=== PATIENT | male | born 1950 | race Caucasian/White ===

== ENCOUNTER → 2017-04-18 | Outpatient (CLI) | payer MEDICARE, OTHER ==
[~2017-04-18] MED LIST: ALBU17AE3 IH; ASP81CT PO; CYCL10TA9 PO; CYCL5TAB11 PO; DOXY-182 PO; HYDR1TAB PO
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
== END ==
LOC: RAD 08:47
PROVIDERS: ATTEND Internal Medicine
DX: S32.029A Unspecified fracture of second lumbar vertebra, initial encounter for closed fracture (principal); S32.039A Unspecified fracture of third lumbar vertebra, initial encounter for closed fracture; M48.05 Spinal stenosis, thoracolumbar region; M47.816 Spondylosis without myelopathy or radiculopathy, lumbar region; Z87.81 Personal history of (healed) traumatic fracture; Z98.890 Other specified postprocedural states
CPT/HCPCS: 72148

== ENCOUNTER → 2017-05-01 | Outpatient (CLI) | payer MEDICARE, OTHER ==
[2017-05-01 15:13] LABS: BASOPHILS % (AUTO) 0 % (0-10); EOSINOPHILS # (AUTO) 0.2 10^3/uL (0.0-0.3); EOSINOPHILS % (AUTO) 3 % (0-10); HEMATOCRIT 47 % (40-54); HEMOGLOBIN 17.1 G/DL (13.3-17.7); LYMPHOCYTES # (AUTO) 2.7 X 10^3 (1.0-4.0); LYMPHOCYTES % (AUTO) 37 % (12-44); MEAN CORPUSCULAR HEMOGLOBIN 31 PG (25-34); MEAN CORPUSCULAR HGB CONC 36 G/DL (32-36); MEAN CORPUSCULAR VOLUME 87 FL (80-99); MEAN PLATELET VOLUME 10.2 FL (7.4-10.4); MONOCYTES # (AUTO) 0.7 X 10^3 (0.0-1.0); MONOCYTES % (AUTO) 10 % (0-12); NEUTROPHILS # (AUTO) 3.5 X 10^3 (1.8-7.8); NEUTROPHILS % (AUTO) 50 % (42-75); PLATELET COUNT 203 10^3/uL (130-400); RED BLOOD COUNT 5.45 10^6/uL (4.35-5.85); RED CELL DISTRIBUTION WIDTH 14.1 % (10.0-14.5); WHITE BLOOD COUNT 7.1 10^3/uL (4.3-11.0)
[2017-05-01 15:28] LABS: ALANINE AMINOTRANSFERASE 42 U/L (0-55); ALBUMIN 4.4 GM/DL (3.2-4.5); ALKALINE PHOSPHATASE 66 U/L (40-136); BILIRUBIN,TOTAL 0.8 MG/DL (0.1-1.0); BUN/CREATININE RATIO 18; CALCIUM 9.5 MG/DL (8.5-10.1); CARBON DIOXIDE 26 MMOL/L (21-32); CHLORIDE 103 MMOL/L (98-107); CREATININE SERUM 0.97 MG/DL (0.60-1.30); GFR ESTIMATED > 60; GLUCOSE 85 MG/DL (70-105); POTASSIUM 4.7 MMOL/L (3.6-5.0); SODIUM 137 MMOL/L (135-145); TOTAL PROTEIN 7.4 GM/DL (6.4-8.2)
[2017-05-01 16:36] LABS: ERYTHROCYTE SEDIMENTATION RATE 1 MM/HR (0-30)
== END ==
LOC: LAB 14:42
PROVIDERS: ATTEND Internal Medicine
DX: S32.020S Wedge compression fracture of second lumbar vertebra, sequela (principal); S32.030S Wedge compression fracture of third lumbar vertebra, sequela
CPT/HCPCS: 36415; 80053; 82232; 82306; 84155; 84165; 84166; 85025; 85652

== ENCOUNTER → 2017-05-08 | Outpatient (CLI) | payer MEDICARE, OTHER ==
--- NOTE | 2017-05-08 19:54 | Diagnostic Imaging Report ---
DEXA scan. INDICATION: Screening for osteoporosis. There are no prior studies available for comparison. The bone mineral density of the hips and spine was measured. The T score for the spine is -1.3. The total T score for the left hip is -1.7 and for the right hip -2.2. All of these values fall within the range of osteopenia. IMPRESSION: There is osteopenia of the spine and hips. Dictated by: Dictated on workstation # [id number]
== END ==
LOC: RAD 08:42
PROVIDERS: ATTEND Internal Medicine
DX: M85.88 Other specified disorders of bone density and structure, other site (principal); M81.0 Age-related osteoporosis without current pathological fracture; S32.020S Wedge compression fracture of second lumbar vertebra, sequela; S32.030S Wedge compression fracture of third lumbar vertebra, sequela
CPT/HCPCS: 77080

== ENCOUNTER → 2017-05-29 | Outpatient (CLI) | payer MEDICARE, OTHER ==
[~2017-05-29] VITALS: Ht 190.5 cm; Wt 108.9 kg
[~2017-05-29] MED LIST changes: +ZOLEDRONATE 5 MG/100 ML (RECLAST) BTL IV ONE
[2017-05-29 14:23] VITALS: BP 129/73
== END ==
LOC: SDC 13:00
PROVIDERS: ATTEND Internal Medicine
DX: M81.0 Age-related osteoporosis without current pathological fracture (principal)
CPT/HCPCS: 96365

== ENCOUNTER → 2017-09-25 | Outpatient (CLI) | payer MEDICARE, OTHER ==
[~2017-09-25] MED LIST changes: -ZOLEDRONATE 5 MG/100 ML (RECLAST) BTL IV ONE
--- NOTE | 2017-09-25 11:36 | Diagnostic Imaging Report ---
PROCEDURE: MRI lumbar spine. TECHNIQUE: Multiplanar, multisequence MRI of the lumbar spine was performed without contrast. INDICATION: Chronic low back pain and previous lumbar spine surgery. Comparison is made to study of 04/18/2017. There has been interval posterior fusion from T11-L1 including the burst fracture of T12 vertebral body. There may be slight retropulsion, however, no significant spinal stenosis is identified. There is mild annular bulging of L1-L2 disc with mild bilateral neural foraminal stenosis. At L2-L3, there is diffuse disc bulging with associated degenerative facet arthropathy resulting in mild trefoil-type spinal stenosis and mild bilateral neural foraminal stenosis, greater on the left. At the L3-L4 level, diffuse disc bulging and small central disc protrusion result in mild bilateral neural foraminal stenosis. At L4-L5, there is diffuse disc bulging and degenerative facet arthropathy causing mild neural foraminal stenosis, greater on the left. Diffuse disc bulging and endplate spurring with degenerative facet arthropathy at L5-S1 causes moderate bilateral neural foraminal stenosis, greater on the right. No marrow edema seen to indicate fracture. IMPRESSION: No significant change in alignment after posterior fusion from T11-L1. Conus medullaris is unremarkable. Disc bulging, endplate spurring and degenerative facet arthropathy results in mild bilateral neural frontal stenosis which is worse on the left from L2-L5 and worse on the right at L5-S1. Dictated by: Dictated on workstation # [id number]
== END ==
LOC: RAD 09:58
PROVIDERS: ATTEND Internal Medicine
DX: M51.27 Other intervertebral disc displacement, lumbosacral region (principal); M46.97 Unspecified inflammatory spondylopathy, lumbosacral region; M99.73 Connective tissue and disc stenosis of intervertebral foramina of lumbar region; M81.0 Age-related osteoporosis without current pathological fracture; Z98.1 Arthrodesis status
CPT/HCPCS: 72148

== ENCOUNTER → 2018-06-26 | Outpatient (CLI) | payer MEDICARE, OTHER ==
--- NOTE | 2018-06-26 13:12 | Diagnostic Imaging Report ---
PROCEDURE: MR imaging cervical spine without contrast. TECHNIQUE: Multiplanar, multisequence MR imaging of the cervical spine was performed without contrast. INDICATION: Neck pain, left shoulder pain when turning the head. No previous for comparison. FINDINGS: ACDF performed plate and screws from C5 through C7 present with at least partial C6 corpectomy and vertical strut placed. The alignment across above and below the fusion was within normal limits. The cervical spinal cord itself had an unremarkable volume morphology and signal intensity. There is no paravertebral mass, hemorrhage or fluid collection. No edema or fluid in the prevertebral or retropharyngeal spaces. The craniocervical relationship to C1-C2 and C2-C3 levels and disc were normal without stenosis. C3-C4: Bulging disc material and endplate osteophytes flatten and effaces the ventral thecal sac. There is severe central canal stenosis with a paucity of CSF within the canal at the disc space level. There is severe left and moderate right neural foraminal stenosis. C4-C5: Osteophyte disc material flattens and effaces the ventral thecal sac with moderate to severe degree of canal stenosis. There is at least moderate magnitudes of bi-foraminal stenosis. C5-C6: There is moderate right and mild left foraminal stenosis with mild central canal narrowing. C6-C7: There is mild bi-foraminal narrowing without substantial canal stenosis. C7-T1: This level appeared unremarkable. No stenosis. IMPRESSION: 1. Postsurgical change to the lower cervical spine at the operative levels. No substantial stenosis. 2. However, above the of fusion severe degrees of canal and foraminal stenoses are present at C3-C4 and C4-C5 as described. Dictated by: Dictated on workstation # [id number]
== END ==
LOC: RAD 09:26
PROVIDERS: ATTEND Internal Medicine
DX: M48.02 Spinal stenosis, cervical region (principal); M50.30 Other cervical disc degeneration, unspecified cervical region; E55.9 Vitamin D deficiency, unspecified; M81.0 Age-related osteoporosis without current pathological fracture; Z98.1 Arthrodesis status
CPT/HCPCS: 72141

== ENCOUNTER → 2018-07-10 | Outpatient (CLI) | payer MEDICARE, OTHER ==
[~2018-07-10] VITALS: Ht 190.5 cm; Wt 108.9 kg
[~2018-07-10] MED LIST changes: +DENOSUMAB 60 MG/1 ML (PROLIA) SQ SCH
[2018-07-10 13:57] VITALS: BP 135/77
== END ==
LOC: SDC 13:10
PROVIDERS: ATTEND Internal Medicine
DX: M81.0 Age-related osteoporosis without current pathological fracture (principal); E55.9 Vitamin D deficiency, unspecified; M50.30 Other cervical disc degeneration, unspecified cervical region; M54.5 Low back pain
CPT/HCPCS: 96372

== ENCOUNTER → 2019-01-11 | Outpatient (CLI) | payer MEDICARE, OTHER ==
[~2019-01-11] VITALS: Ht 185 cm; Wt 100.0 kg
[~2019-01-11] MED LIST changes: +DENOSUMAB 60 MG/1 ML (PROLIA) SQ ONE; -DENOSUMAB 60 MG/1 ML (PROLIA) SQ SCH
[2019-01-11 13:10] VITALS: BP 135/77
== END ==
LOC: SDC 12:57
PROVIDERS: ATTEND Internal Medicine
DX: M50.30 Other cervical disc degeneration, unspecified cervical region (principal); M81.0 Age-related osteoporosis without current pathological fracture; E55.9 Vitamin D deficiency, unspecified
CPT/HCPCS: 96372

== ENCOUNTER 2020-11-21 05:44 | Outpatient (CLI) | payer MEDICARE, OTHER ==
[~2020-11-21] VITALS: Ht 188 cm; Wt 90.9 kg
[~2020-11-21 05:44] MED LIST changes: -DENOSUMAB 60 MG/1 ML (PROLIA) SQ ONE
[2020-11-21] MEDS ORDERED: MELA1TAB20 PO (15:11)
[2020-11-21] MEDS ORDERED: FINA5TAB6 PO (15:11)
[2020-11-21] MEDS ORDERED: ZOLP10TA PO (15:11)
== END 2020-11-21 15:25 ==
LOC: PREOP 05:44
PROVIDERS: ATTEND Specialist
DX: Z01.818 Encounter for other preprocedural examination (principal)

== ENCOUNTER 2020-11-24 09:45 | Day surgery (SDC) | payer MEDICARE, OTHER ==
[~2020-11-24] VITALS: Ht 188 cm; Wt 90.9 kg
[~2020-11-24 09:45] MED LIST changes: +FINA5TAB6 PO; +MELA1TAB20 PO; +ZOLP10TA PO
--- OUTSIDE RECORDS SUMMARY | 2020-11-24 09:49 | XMS REPORT | Clinical Summary ---
Author Author [facility] Organization [facility] Address Unknown Phone Unavailable Care Team Providers Care [employer] Instructor Name Role Phone Jeferson Negron MD Unavailable Sudhir STRICKLAND MD, Sukhdev Woodward PCP [phone] Source Comments Some departments are not documenting in the electronic medical record. If you d o not see the information that you expected, contact Release of Information in [facility] [employer] Information Management department at [phone] for further assistan ce in locating additional records.[facility] Allergies No Known Active Allergies Medications End Date Status Medication Sig Dispensed Refills Start Date Active zolpidem (AMBIEN) 10 mg Take 10 mg by 0 tablet mouth at 0 bedtime daily. Active cyanocobalamin 1,000 mcg Take 1,000 0 tablet mcg by mouth daily. Active aspirin EC 81 mg tablet Take 81 mg by 0 mouth daily. Active melatonin 10 mg tab Take 10 mg by 0 mouth at bedtime daily. Active cholecalciferol (VITAMIN Take 5,000 0 D-3) 1,000 units tablet Units by mouth daily. Active C,E,zinc,copper Take 1 0 13-[id number]-ymm (OCUVITE capsule by ADULT 50 PLUS) 250-5-1 mg mouth daily. cap Active calcium carbonate/vitamin Take 2 0 D-3 (OSCAL-500+D) 1250 tablets by mg/200 unit tablet mouth daily. Calcium Carb 1250mg delivers 500mg elemental Ca Active Potassium Gluconate 595 Take 595 mg 0 mg (99 mg) tab by mouth daily. Active HERBAL DRUGS PO Take by 0 mouth. Super beta Prostate supplement Active acetaminophen (TYLENOL) Take two 180 tablet 0 500 mg tablet tablets by 0 mouth every 8 hours. Max of 4,000 mg of acetaminophen in 24 hours. Active docusate (COLACE) 100 mg Take one 60 capsule 0 1 capsule capsule by 0 mouth twice daily. Active traMADoL (ULTRAM) 50 mg Take one 60 tablet 0 tablet tablet to two 0 tablets by mouth every 6 hours as needed. Active Problems Problem Noted Date Dorsalgia 12/02/2019 Displacement of internal fixation device of vertebrae 12/02/2019 S/P hardware removal 12/02/2019 Encounter for pre-operative cardiovascular clearance 11/15/2019 Surgical History Surgery Date Site/Laterality Comments BACK SURGERY NECK SURGERY KYPHOPLASTY ARTHROPLASTY 02/24/2001 - 02/23/2002 HX ARTHROSCOPIC SURGERY 02/24/2001 - 02/23/2002 HX FUSION PROCEDURE 02/25/2016 - 02/23/2017 HARDWARE REMOVAL 12/01/2019 Spine REMOVAL POSTE RIOR SEGMENTAL HARDWARE AT THORACIC Thoracic/N/A 11 TO LUMBAR 1, exploration of fusion performed by Zach Hutton MD at [facility] Medical devices from this surgery are i n the Implants section. Medical History Medical History Date Comments Vitamin D deficiency Osteopenia Joint pain Since 2000 Generalized headaches Sometimes when the pain is worse. Nerve injury 2000 Degenerative disc disease, cervical 2000 Degenerative disc disease, lumbar 2000 Degenerative disc disease, thoracic 2000 Family History Medical History Relation Name Comments Arthritis Father Devon Ortega Hypertension Father Devon Ortega Stroke Father Devon Ortega Had a stroke Arthritis Mother Colleen Ortega Hypertension Mother Colleen Ortega Relation Name Status Comments Father Devon Ortega Mother Colleen Ortega Social History Date Tobacco Use Types Packs/Day Years Used Quit: 05/20/2019 Former Smoker Cigarettes 0.5 45 Smokeless Tobacco: Never Used Tobacco Cessation: Ready to Quit: Yes; C ounseling Given: Yes Comments Alcohol Use Standard Drinks/Week Very seldom Not Currently 0 (1 standard drink = 0.6 o z pure alcohol) Alcohol Habits Answer Date Recorded How often do you have a drink containing alcohol? No t asked How many drinks containing alcohol do you have on No t asked a typical day when you are drinking? How often do you have six or more drinks on one Not asked occasion? Comment: Very seldom 10/12/2019 Sex Assigned at Date Recorded Male 09/09/2019 8:53 AM CDT Last Filed Vital Signs Reading Time Taken Comments Vital Sign 96/56 12/03/2019 5:11 AM CDT Blood Pressure 54 12/03/2019 5:11 AM CDT Pulse 36.4 C (97.5 F) 12/03/2019 5:11 AM CDT Temperature - - Respiratory Rate 92% 12/03/2019 5:11 AM CDT Oxygen Saturation - - Inhaled Oxygen Concentration 87.3 kg (192 lb 6.4 oz) 12/01/2019 11:25 AM CDT Weight 188 cm (6' 2") 12/01/2019 11:25 AM CDT Height 24.7 12/01/2019 11:25 AM CDT Body Mass Index Plan of Treatment Health Maintenance Due Date Last Done Comments MEDICARE ANNUAL WELLNESS 1950 VISIT DTAP/TDAP VACCINES (1 - 1968 Tdap) HEPATITIS C SCREENING 1968 PHYSICAL (COMPREHENSIVE) 1968 EXAM COLORECTAL CANCER 2000 SCREENING SHINGLES RECOMBINANT 2000 VACCINE (1 of 2) ABDOMINAL AORTIC ANEURYSM 09/14/2015 SCREENING PNEUMONIA (PPSV23) 09/14/2015 VACCINE (1 of 1 - PPSV23) INFLUENZA VACCINE 09/24/2020 Goals Goal Patient Associated Recent Progress Patient-Stat Aut hor Goal Type Problems ed? Resume normal activities Hospital Yes Izzy Zavala, RN Note: Get back to working on the [employer] Implants Device Identifier Shelf Expiration Date Model / Serial / L ot Explanted Type Area Manufactur er / N/A / N/A Set Screws N/A: Spine Explanted: Qty: 6 on 12/01/2019 by Zach Mckeon MD at [facility] Description:Removed and sent for cleaning for return to patient / N/A / N/A Screws N/A: Spine Explanted: Qty: 6 on 12/01/2019 by Zach Mckeon MD at [facility] Description:Removed and cleaned for return to patient / N/A / N/A Cross Connector N/A: Spine Explanted: Qty: 1 on 12/01/2019 by Zach Mckeon MD at [facility] Description:Removed cleaned for return to patient / N/A / N/A Rods N/A: Spine Explanted: Qty: 2 on 12/01/2019 by Zach Mckeon MD at [facility] Description:Removed ,cleaned for return to patient Results Not on filefrom Last 3 Months Insurance Type Payer Benefit Subscriber ID Effective Phone Address Plan / Dates Group Medicare MEDICARE MEDICARE [id number] 2013-P PART A AND resent B AETNA AETNA [id number] 2014- SUPPLEMENT Present 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
[2020-11-24] MEDS ORDERED: LIDOCAINE PF 1% 2 ML VIAL IR PRN (10:00)
[2020-11-24] MEDS ORDERED: MOXIFLOXACIN OPHTH SOLN 5 MG/ML 0.3 ML SYRINGE OP ONE (10:00)
[2020-11-24] MEDS ORDERED: TIMOLOL MALEATE 0.5% 5 ML (TIMOPTIC) BTL OU PRN (10:00)
[2020-11-24] MEDS ORDERED: POVIDONE (BETADINE) OPHTH SOLN 5% 30 ML OP ONE (10:00)
[2020-11-24] MEDS: TETRACAINE 0.5% OPHTH SOLN 4 ML BTL (SINGLE DOSE ONLY) OU PRN ×4 (10:08→10:26)
[2020-11-24] MEDS: PHENYLEPHRINE 10% OPHTH (NEO-SYN) 5 ML BTL OU SCH ×3 (10:16→10:26)
[2020-11-24] MEDS: TROPICAMIDE 1% OPH SOLN (MYDRIACYL) 15 ML BTL OP SCH ×3 (10:16→10:26)
[2020-11-24] MEDS ORDERED: MIDAZOLAM 2 MG/2 ML (VERSED) VIAL ONE (10:19)
[2020-11-24 10:36] VITALS: BP 121/75
--- NOTE | 2020-11-24 10:43 | Ophthalmologist Pre-Op Note ---
Pre-Operative Progress Note H&P Reviewed The H&P was reviewed, patient examined and no changes noted. Date H&P Reviewed: Nov 24, 2020 Time H&P Reviewed: 10:43 Pre-Op Dx Cataract, Right Eye GUTIERREZ RIZZO MD Nov 24, 2020 10:43
--- NOTE | 2020-11-24 11:06 | Ophthalmology Operative Report ---
Cataract removal/placement IOL PREOPERATIVE DIAGNOSIS: Cataract Right Eye POSTOPERATIVE DIAGNOSIS: Cataract Right Eye PROCEDURE: Cataract removal and placement of posterior chamber implant, right eye SURGEON: Radhames Rizzo ANESTHESIA: Topical with sedation COMPLICATIONS: None ESTIMATED BLOOD LOSS: Minimal DESCRIPTION OF PROCEDURE: After proper informed consent was obtained, the patient, a 70 male, was taken to the Operating Room and the right eye was anesthetized with tetracaine. The right eye was then prepped and draped in the usual manner. A wire lid speculum was placed. A paracentesis was made at the left hand position. Preservative free lidocaine was injected into the anterior chamber followed by viscoelastic. A clear corneal incision was made in the temporal position. A capsulorrhexis was preformed and the central nuclear and cortical material were removed. The posterior capsule was polished and Robert 20.5 AU00T0 IOL was placed into the capsular bag. The residual viscoelastic was aspirated and balanced saline solution was injected into the anterior chamber. Moxifloxacin was injected into the anterior chamber. The wound was checked and found to be water tight. The patient tolerated the procedure well without complications. RADHAMES RIZZO MD Nov 24, 2020 11:06
[2020-11-24 11:10] VITALS: BP 111/70
[2020-11-24] MEDS ORDERED: acetaZOLAMIDE ER 500 MG CAP (DIAMOX SEQUELS) PO ONE (11:30)
--- NOTE | 2020-11-24 13:56 | Anesthesia-General Post-Op ---
MAC Patient Condition Mental Status/LOC: Same as Preop Cardiovascular: Satisfactory Nausea/Vomiting: Absent Respiratory: Satisfactory Pain: Controlled Complications: Absent Post Op Complications Complications None Follow Up Care/Instructions Patient Instructions None needed. Anesthesiology Discharge Order Discharge Order Patient is doing well, no complaints, stable vital signs, no apparent adverse anesthesia problems. No complications reported per nursing. ALETHEA VELAZQUEZ CRNA Nov 24, 2020 13:56
== END 2020-11-24 11:14 ==
LOC: SDC 09:45
PROVIDERS: ATTEND Specialist
DX: H25.11 Age-related nuclear cataract, right eye (principal); F17.200 Nicotine dependence, unspecified, uncomplicated; Z79.899 Other long term (current) drug therapy
CPT/HCPCS: 66984; V2632

== ENCOUNTER 2020-12-01 07:00 | Day surgery (SDC) | payer MEDICARE, OTHER ==
[~2020-12-01] VITALS: Ht 188 cm; Wt 90.9 kg
[2020-12-01] MEDS: TETRACAINE 0.5% OPHTH SOLN 4 ML BTL (SINGLE DOSE ONLY) OU PRN ×4 (07:12→07:30)
[2020-12-01 07:15] VITALS: BP 136/80
[2020-12-01] MEDS ORDERED: LIDOCAINE PF 1% 2 ML VIAL IR PRN (07:15)
[2020-12-01] MEDS ORDERED: MOXIFLOXACIN OPHTH SOLN 5 MG/ML 0.3 ML SYRINGE OP ONE (07:15)
[2020-12-01] MEDS ORDERED: TIMOLOL MALEATE 0.5% 5 ML (TIMOPTIC) BTL OU PRN (07:15)
[2020-12-01] MEDS ORDERED: POVIDONE (BETADINE) OPHTH SOLN 5% 30 ML OP ONE (07:15)
[2020-12-01] MEDS: PHENYLEPHRINE 10% OPHTH (NEO-SYN) 5 ML BTL OU SCH ×3 (07:18→07:30)
[2020-12-01] MEDS: TROPICAMIDE 1% OPH SOLN (MYDRIACYL) 15 ML BTL OP SCH ×3 (07:18→07:30)
[2020-12-01] MEDS ORDERED: MIDAZOLAM 2 MG/2 ML (VERSED) VIAL ONE (08:03)
[2020-12-01] MEDS ORDERED: acetaZOLAMIDE ER 500 MG CAP (DIAMOX SEQUELS) PO ONE (08:30)
--- NOTE | 2020-12-01 08:31 | Ophthalmologist Pre-Op Note ---
Pre-Operative Progress Note H&P Reviewed The H&P was reviewed, patient examined and no changes noted. Date H&P Reviewed: Dec 01, 2020 Time H&P Reviewed: 08:26 Pre-Op Dx Cataract, Left Eye GUTIERREZ RIZZO MD Dec 01, 2020 08:31
--- NOTE | 2020-12-01 08:50 | Ophthalmology Operative Report ---
Cataract removal/placement IOL PREOPERATIVE DIAGNOSIS: Cataract Left Eye POSTOPERATIVE DIAGNOSIS: Cataract Left Eye PROCEDURE: Cataract removal and placement of posterior chamber implant, left eye SURGEON: Radhames Rizzo ANESTHESIA: Topical with sedation COMPLICATIONS: None ESTIMATED BLOOD LOSS: Minimal DESCRIPTION OF PROCEDURE: After proper informed consent was obtained, the patient, a 70 male, was taken to the Operating Room and the left eye was anesthetized with tetracaine. The left eye was then prepped and draped in the usual manner. A wire lid speculum was placed. A paracentesis was made at the left hand position. Preservative free lidocaine was injected into the anterior chamber followed by viscoelastic. A clear corneal incision was made in the temporal position. A capsulorrhexis was preformed and the central nuclear and cortical material were removed. The posterior capsule was polished and an Robert 20.5 AU00T0 was placed into the capsular bag. The residual viscoelastic was aspirated and balanced saline solution was injected into the anterior chamber. Moxifloxacin was injected into the anterior chamber. The wound was checked and found to be water tight. The patient tolerated the procedure well without complications. RADHAMES RIZZO MD Dec 01, 2020 08:50
[2020-12-01 08:57] VITALS: BP 116/68
--- NOTE | 2020-12-01 10:10 | Anesthesia-General Post-Op ---
MAC Patient Condition Mental Status/LOC: Same as Preop Cardiovascular: Satisfactory Nausea/Vomiting: Absent Respiratory: Satisfactory Pain: Controlled Complications: Absent Post Op Complications Complications None Follow Up Care/Instructions Patient Instructions None needed. Anesthesiology Discharge Order Discharge Order Patient is doing well, no complaints, stable vital signs, no apparent adverse anesthesia problems. No complications reported per nursing. JESSENIA POON CRNA Dec 01, 2020 10:10
== END 2020-12-01 08:57 | disposition home or self-care (01) ==
LOC: SDC 07:00
PROVIDERS: ATTEND Specialist
DX: H25.12 Age-related nuclear cataract, left eye (principal); F17.200 Nicotine dependence, unspecified, uncomplicated; Z79.899 Other long term (current) drug therapy
CPT/HCPCS: 66984; V2632

== ENCOUNTER → 2022-09-24 | Outpatient (CLI) | payer MEDICARE, OTHER ==
[~2022-09-24] MED LIST changes: -MELA1TAB20 PO; +MELA1TAB72 PO
--- NOTE | 2022-09-24 11:01 | Diagnostic Imaging Report ---
INDICATION: Personal history of osteopenia, prior hip or vertebral fracture not resulting from significant trauma. COMPARISON: 05/08/2017. FINDINGS: AP Spine L1-L4: [BMD (g/cm2): 1.108] [T-Score: -1.1] [Z-Score: -1.0] [BMD Previous: 1.080] [BMD % Change: 2.6*] LT Hip Neck: [BMD (g/cm2): 0.796] [T-Score: -2.1] [Z-Score: -1.1] LT Hip Total: [BMD (g/cm2):0.849] [T-Score:-1.7] [Z-Score: -1.2] [BMD Previous: 0.857] [BMD % Change: -0.9] RT Hip Neck: [BMD (g/cm2):0.688] [T-Score:-2.9] [Z-Score:-1.9] RT Hip Total: [BMD (g/cm2):0.764] [T-score:-2.3] [Z-Score:-1.8] [BMD Previous:0.778] [BMD % Change:-1.8] *Indicates significant change from prior examination based on 95% confidence level. World Health Organization criteria for BMD interpretation classify patients as Normal (T-score at or above -1.0), Osteopenic (T-score between -1.0 and -2.5) or Osteoporotic (T-score at or below -2.5). LIMITATIONS AND MODIFICATION: None. FRACTURE RISK (FRAX SCORE): The ten year probability of (%): Major Osteoporotic Fracture: [34.9] Hip Fracture: [25.8] IMPRESSION: 1. Osteoporosis. 2. Bone mineral density within the bilateral hips has not significantly changed from the prior examination. Bone mineral density within the lumbar spine has significantly increased from the prior examination though some of this apparent increase could be artifactual related to degenerative hypertrophic changes. 3. See below National Osteoporosis Foundation guidelines on when to potentially initiate pharmacologic therapy. Based on the National Osteoporosis Foundation Guidelines, pharmacologic treatment should be initiated in any of the following, unless clinical conditions suggest otherwise: * Any patient with prior fragility fracture of the hip or vertebrae. A spine fracture indicates 5X risk for subsequent spine fracture and 2X risk for subsequent hip fracture. * Osteoporosis (T-score <-2.5). * Postmenopausal women and men age 50 and older with low bone mass/osteopenia (T-score between -1.0 and -2.5) by DXA and 10-year major osteoporotic fracture greater than 20% or a 10-year probability of hip fracture greater than 3%. These fracture risks are supplied above in the FRAX score, if applicable. * Clinician judgement and/or patient preferences may indicate treatment for people with 10-year fracture probabilities above or below these levels. Dictated by: Dictated on workstation # [id number]
== END ==
LOC: RAD 09:38
PROVIDERS: ATTEND Internal Medicine
DX: M81.0 Age-related osteoporosis without current pathological fracture (principal); Z87.81 Personal history of (healed) traumatic fracture; Z87.39 Personal history of other diseases of the musculoskeletal system and connective tissue
CPT/HCPCS: 77080